=== PATIENT | female | born 1975 | race Two or more races ===

== ENCOUNTER → 2024-04-09 | Outpatient (CLI) | payer BC, SELFPAY ==
--- NOTE | 2024-04-09 09:00 | XR_ITS ---
Examination: Screening digital mammography, bilateral Computer aided detection 3-D breast Tomosynthesis, bilateral Date and time of exam: April 09, 2024 0913 hours Compared to mammograms dating to August 31, 2021 Indication: Screening Technique: Nonmagnified MLO, CC views of the breasts to been obtained, reconstructed from 3-D Tomosynthesis images. R2 computer aided detection program utilized for evaluation of suspicious masses and/or abnormal calcifications. 3-D Tomosynthesis images obtained. Findings: Scattered areas of fibroglandular density. Benign calcifications. No interval suspicious masses Impression: BI-RADS category II: Benign Findings. Recommend 1 year follow-up mammogram.
== END | disposition home or self-care (01) ==
LOC: CDIM 09:06
PROVIDERS: Referring Provider Nurse Practitioner; Visit Provider Nurse Practitioner
DX: Z12.31 Encounter for screening mammogram for malignant neoplasm of breast (principal); R92.323 Mammographic fibroglandular density, bilateral breasts; R92.1 Mammographic calcification found on diagnostic imaging of breast
CPT/HCPCS: 77063; 77067

== ENCOUNTER 2024-05-18 15:37 | Emergency (ER) | payer BC, SELFPAY ==
[2024-05-18 16:13] VITALS: BP 146/80; PULSE 100; RESP 19; TEMP 37; O2SAT 98; BMI 40.1
--- NOTE | 2024-05-18 16:21 | PD.EDDENTL ---
ED Dental RME/HPI General Chief complaint: Dental/Oral/Throat Stated complaint: RIGHT SIDE FACE PAIN FOR 2 DAYS Time Seen by Provider: 05/18/24 15:57 Arrival date/time: 05/18/24 15:37 This is a 48-year-old female that comes in with complaints of right facial swelling. Patient states her right lower gums have been bothering her for the past 2 days. Patient reports history of diabetes. Related Data Previous Rx's ?Medication ?Instructions ?Recorded amoxicillin 875 mg-potassium 1 tab PO Q12H #14 tabs 05/18/24 clavulanate 125 mg tablet ibuprofen 800 mg tablet 800 mg PO Q6H PRN pain #10 tabs 05/18/24 Allergies Allergy/AdvReac Type Severity Reaction Status Date / Time codeine Allergy Severe Dizziness Verified 05/18/24 15:41 hydrocodone [From Vicodin] Allergy Severe Dizziness Verified 05/18/24 15:41 oxycodone [From Percocet] Allergy Severe Dizziness Verified 05/18/24 15:41 propoxyphene Allergy Severe Dizziness Verified 05/18/24 15:41 [From Darvocet-N] Review of Systems Review of Systems Systems Reviewed: All systems reviewed, normal except as documented Past Medical History Past Medical History Comments PMH COMMENT: diabetes ED Exam General General appearance: Present alert and in no apparent distress Head Head exam: Present atraumatic Eye Eye exam: Present normal appearance, PERRL and EOMI ENT ENT exam: Present normal oropharynx, mucous membranes moist and other (right facial swelling ) Neck Neck exam: Present normal inspection, full ROM and trachea midline Chest Chest inspection: Present normal inspection and symmetric chest wall rise Respiratory Respiratory exam: Present normal lung sounds bilaterally Cardiovascular Cardiovascular exam: Present regular rate, normal rhythm and normal heart sounds Abdominal Exam Abdominal exam: Present soft Extremities Exam Extremities exam: Present normal inspection and full ROM Back Exam Back exam: Present normal inspection and full ROM Neurological Exam Neurological exam: Present alert, oriented X3 and CN II-XII intact Psychiatric Psychiatric exam: Present normal affect and normal mood Skin Skin exam: Present warm, dry, intact and normal color Course Quality Measures none Orders Category Date Time Status Acetaminophen Tab [Tylenol ES Tab] Med 05/18/24 16:20 Discontinued 1,000 mg PO X1 ONE Dexamethasone Inj [Decadron Inj] Med 05/18/24 16:20 Discontinued 10 mg PO X1 ONE cefTRIAXone [Rocephin] 1,000 mg Med 05/18/24 16:20 Discontinued Lidocaine 1% 20 ml [Xylocaine 1% 20 ML] 2.1 ml IM X1 Vital Signs Vital signs: Vital Signs Temperature 98.6 F 05/18/24 16:13 Pulse Rate 100 05/18/24 16:13 Respiratory Rate 19 05/18/24 16:13 Blood Pressure 146/80 H 05/18/24 16:13 Pulse Oximetry (%) 98 05/18/24 16:13 Oxygen Delivery Method Room Air 05/18/24 16:13 Dental / Oral MDM Narrative MDM Narrative:: This is a 48-year-old female that comes in with complaints of right facial swelling. Patient states her right lower gums have been bothering her for the past 2 days. Patient reports history of diabetes. Pt tx with a dose of rocephin and will send pt home on antibiotics. Patient data External records reviewed:: [facility] previous records Clinical information provided by:: patient Social determinants that could affect healthcare access:: none Patient has the following chronic illnesses:: none How is presenting disease/condition affected by chronic disease/condition?: no chronic disease Evaluation data The following diagnostics were reviewed and interpreted by me:: lab results Lab and/or radiology exams considered but not ordered:: none Interpretation Summary: none Medications / Prescriptions Medications or Prescriptions considered but not ordered:: none Medication administrations:: Medication Administration History Discontinued Medications Acetaminophen (Acetaminophen 500 Mg Tablet) 1,000 mg PO X1 ONE Stop: 05/18/24 16:21 Last Admin: 05/18/24 17:08 Dose: 1,000 mg Documented By: Ceftriaxone Sodium 1,000 mg/ (Lidocaine HCl 2.1 ml) 0 mg IM X1 ONE Stop: 05/18/24 16:21 Last Admin: 05/18/24 17:08 Dose: 1,000 mg Documented By: Dexamethasone Sodium Phosphate (Dexamethasone Sod Phos Inj 10 Mg/Ml Vial) 10 mg PO X1 ONE Stop: 05/18/24 16:21 Last Admin: 05/18/24 17:08 Dose: 10 mg Documented By: see mar Consultations Consultation(s) initiated? (list below): No Diagnosis Most likely diagnosis given after review of the tests above:: cellulitis Admission Indicated Admission indicated?: not indicated Admission Request Was there a request for admission?: No Disposition Plan Disposition Plan: Discharge Discharge Attestation Discharge Attestation: The patient and all family members were given an opportunity to ask questions and understood the discharge instructions. Discharge instructions specifically effects, indications for sooner follow up or return to the emergency department, and the expected course of current diagnosis. Patient condition: Stable Discharge Plan Plan Patient Disposition: HOME (Self Care) Patient condition on transfer: Stable Prescriptions/Referrals Prescriptions/Med Rec: New ibuprofen 800 mg tablet 800 mg PO Q6H PRN (Reason: pain) Qty: 10 0RF amoxicillin-pot clavulanate 875-125 mg tablet 1 tab PO Q12H Qty: 14 0RF Problem List Clinical Impression: Toothache, Cellulitis Patient/Caregiver Discharge Instructions Discharge Activity: activity as tolerated Education Materials: ED Cellulitis Additional Instructions: May take Tylenol and ibuprofen for pain. Follow-up with primary provider in 1 to 2 days. Please make a dental appointment. Come back to the emergency room if symptoms change or worsen. Print Language: Malawian Stand Alone Forms: Elizabeth Award Info., Patient Portal Info Letter SINGH/MIKE Supervising Physician SINGH/MIKE Supervising Physician: marilynn
[2024-05-18] MEDS: cefTRIAXone 1,000 MG, LIDOCAINE 1% 20 ML 2.1 ML IM (17:08)
[2024-05-18] MEDS: ACETAMINOPHEN 500 MG TABLET 1000 MG PO (17:08)
[2024-05-18] MEDS: DEXAMETHASONE SOD PHOS INJ 10 MG/ML VIAL PO (17:08)
== END 2024-05-18 18:02 | disposition home or self-care (01) ==
PROVIDERS: Emergency Provider Emergency Medicine
DX: K08.89 Other specified disorders of teeth and supporting structures (principal); L03.211 Cellulitis of face; E11.9 Type 2 diabetes mellitus without complications
CPT/HCPCS: 96372; 99283; J0696; J1100; J3490; A9270

== ENCOUNTER → 2024-10-02 | Outpatient (CLI) | payer BC, SELFPAY ==
[2024-10-02 12:08] LABS: Basophils # (Auto) 0.1 Thou/mm3 (0.0-0.2); Basophils % (Auto) 1 % (0-2.5); Eosinophils # (Auto) 0.4 Thou/mm3 (0.0-0.5); Eosinophils % (Auto) 5 % (0-10); Hematocrit 39.6 % (36.0-46.0); Hemoglobin 12.8 g/dL (12.0-16.0); Immature Granulocytes % (Auto) 1 % (0-0); Immature Granulocytes Auto 0.09 Thou/mm3 (0.00-0.00); Lymphocytes # (Auto) 2.6 Thou/mm3 (1.0-4.8); Lymphocytes % (Auto) 26 % (10-50); Mean Corpuscular HGB Conc 32.3 g/dl (31.0-37.0); Mean Corpuscular Hemoglobin 24.8 pg (25.0-35.0); Mean Corpuscular Volume 77 fL (80-100); Monocytes # (Auto) 0.8 Thou/mm3 (0.0-0.8); Monocytes % (Auto) 8 % (0-12); Neutrophils # (Auto) 5.8 Thou/mm3 (1.8-7.7); Neutrophils % (Auto) 60 % (37-80); Nucleated Red Blood Cell % 0 /100 WBC (0); Platelet Count 326 Thou/mm3 (140-440); RDW Standard Deviation 45.1 fL (36.4-46.3); Red Blood Count 5.17 Miln/mm3 (4.00-5.20); White Blood Count 9.8 Thou/mm3 (3.6-11.0)
[2024-10-02 12:18] LABS: Glucose Estimated Average 321 mg/dL (80-131); Hemoglobin A1C 12.8 % Hgb (4.8-6.0)
[2024-10-02 12:21] LABS: Creatinine MALB Rnd Ur 110 mg/dL (30-125); Microalbumin Creat Ratio 5 mg/gCrea (<30); Microalbumin, Random Urine 6 mg/L (0-300)
[2024-10-02 12:23] LABS: Alanine Aminotransferase 14 U/L (10-49); Albumin, Serum 4.3 gm/dL (3.5-5.0); Alkaline Phosphatase 101 U/L (46-116); Anion Gap 10 (7-16); Aspartate Amino Transferase 16 U/L (0-34); BUN/Creatinine Ratio 17 Ratio (12-20); Bilirubin,Total 0.4 mg/dL (0.3-1.2); Blood Urea Nitrogen 10 mg/dL (9-23); Calcium 8.8 mg/dL (8.3-10.6); Calcium (Corrected) 8.8 mg/dL (8.5-10.1); Carbon Dioxide 28.6 mMol/L (20.0-31.0); Chloride 103 mMol/L (98-107); Creatinine (Component) 0.6 mg/dL (0.6-1.3); Globulin 2.1 gm/dL (2.3-3.5); Glucose 167 mg/dL (74-106); Osmolality,Calculated 286 (275-295); Potassium 3.9 mMol/L (3.4-5.1); Sodium 142 mMol/L (136-145); Total Protein 6.4 gm/dL (5.7-8.2); eGFR > 60 See Note
== END | disposition home or self-care (01) ==
PROVIDERS: PCP Family Medicine; Referring Provider Nurse Practitioner; Visit Provider Nurse Practitioner
DX: E11.9 Type 2 diabetes mellitus without complications (principal)
CPT/HCPCS: 36415; 80053; 82043; 82570; 83036; 85025

== ENCOUNTER → 2024-11-13 | Outpatient (CLI) | payer BC, SELFPAY ==
[2024-11-13 13:31] LABS: Folate > 24.00 ng/mL (>5.38); Follicle Stimulating Hormone 5.77 mIU/mL (See Note); Vitamin B12 544 pg/mL (211-911); Vitamin D 25 Hydroxy Total 18.2 ng/mL (7.3-40.2)
[2024-11-24 07:46] LABS: Estradiol, Ultrasensitive* 17 pg/mL; Luteinizing Hormone* 0.7 mIU/mL; Progesterone,LC/MS* 0.1 ng/mL; Testosterone, Total, Dialysis 12 ng/dL (2-45)
[2024-11-24 07:47] LABS: Testosterone, Free,Dialysis 2.1 pg/mL (0.1-6.4)
== END | disposition home or self-care (01) ==
LOC: COPL 12:28
PROVIDERS: PCP Nurse Practitioner; Referring Provider Nurse Practitioner; Visit Provider Nurse Practitioner
DX: N95.1 Menopausal and female climacteric states (principal); R53.83 Other fatigue
CPT/HCPCS: 36415; 82306; 82607; 82670; 82746; 83001; 83002; 84144; 84402; 84403